=== PATIENT | male | born 1955 | race Caucasian/White ===

== ENCOUNTER 2017-12-22 19:02 | Emergency (ER) | END 2017-12-22 21:31 | disposition home or self-care (01) ==

== ENCOUNTER 2018-01-05 14:52 | Emergency (ER) | END 2018-01-05 17:31 | disposition left against medical advice (07) ==

== ENCOUNTER 2018-04-28 18:11 | Emergency (ER) | payer OTHER ==
[~2018-04-28] VITALS: Ht 167.6 cm; Wt 76.7 kg
[~2018-04-28 18:11] MED LIST: BACI28.34 TOP; BLOOD PRESSURE MEDS
[2018-04-28 18:16] VITALS: BP 101/86; PULSE 66; RESP 20; Ht 167.6 cm; Wt 76.7 kg
[2018-04-28] MEDS ORDERED: DIPHENHYDRAMINE 50 MG INJ IM ONE (18:30)
[2018-04-28] MEDS ORDERED: METHYLPREDNISOLONE 125 MG INJ IM ONE ×2 (18:30→19:00)
[2018-04-28] MEDS ORDERED: PRED20TA PO (19:29)
[2018-04-28] MEDS ORDERED: BEN50 PO (19:29)
--- NOTE | 2018-04-28 19:31 | ERD ---
ER Documentation Chief Complaint Chief Complaint States possible allergic reaction from Motrin HPI 63-year-old male presents with sudden onset of rash swelling the lips after taking ibuprofen for the first time today. Denies shortness of breath, fevers. ROS All systems reviewed and are negative except as per history of present illness. Medications Home Meds Active Scripts Prednisone* (Prednisone*) 20 Mg Tab, 60 MG PO DAILY for 3 Days, TAB Prov:ALBERTO KIRKPATRICK MD 04/28/18 Diphenhydramine Hcl* (Benadryl*) 50 Mg Cap, 50 MG PO Q6 PRN for ALLERGY, #15 CAP Prov:ALBERTO KIRKPATRICK MD 04/28/18 Bacitracin* (Bacitracin Zinc Oint*) 28.35 Gm Oint, 1 APPLIC TOP BID, #1 TUB APPLI TO Prov:NIKKI RECIO PA-C 12/22/17 Reported Medications [Blood Pressure Meds] No Conflict Check 06/16/10 Allergies Allergies: Coded Allergies: No Known Allergies (Verified Allergy, Unknown, 12/22/17) PMhx/Soc Medical and Surgical Hx: pt denies Medical Hx History of Surgery: Yes (NASAL SX/COLONOSCOPY) Anesthesia Reaction: No Hx Neurological Disorder: No Hx Respiratory Disorders: No Hx Cardiac Disorders: No Hx Psychiatric Problems: No Hx Miscellaneous Medical Probl: No Hx Alcohol Use: No Hx Substance Use: No Hx Tobacco Use: No Smoking Status: Never smoker FmHx Family History: No diabetes, No coronary disease, No other Physical Exam Vitals Vital Signs Date Temp Pulse Resp B/P (MAP) Pulse Ox O2 O2 Flow FiO2 Time Delivery Rate 04/28/18 97.9 66 20 101/86 97 18:16 (91) Physical Exam Const: No acute distress Head: Atraumatic Eyes: Normal Conjunctiva ENT: Normal External Ears, Nose and Mouth. Slight swelling of lips. Airway patent. Neck: Full range of motion. No meningismus. Resp: Clear to auscultation bilaterally Cardio: Regular rate and rhythm, no murmurs Abd: Soft, non tender, non distended. Normal bowel sounds Skin: No petechiae or purpura. Scattered wheals urticarial lesions on the back. Back: No midline or flank tenderness Ext: No cyanosis, or edema Neur: Awake and alert Psych: Normal Mood and Affect Results 24 hrs Current Medications Medications Dose Sig/Kenny Start Time Status Last (Trade) Ordered Route PRN Stop Time Admin Dose Reason Admin 50 mg ONCE ONCE 04/28/18 DC 04/28/18 Diphenhydrami IM 18:30 18:46 ne HCl 04/28/18 18:31 (Benadryl) 125 mg ONCE ONCE 04/28/18 DC 04/28/18 Methylprednis IM 18:30 18:48 olone Sodium 04/28/18 18:31 Succinate (Solu-Medrol) 125 mg ONCE ONCE 04/28/18 DC Methylprednis IM 19:00 olone Sodium 04/28/18 19:01 Succinate (Solu-Medrol) Procedures/MDM Patient presents with urticarial rash sudden onset of taking ibuprofen today. He has no signs of anaphylaxis, sepsis, airway obstruction or wheezing. Patient given Solu-Medrol 125 mg IM, Benadryl 50 mg IM. Patient had improved symptoms decreased swelling and rash. Patient shows no evidence of complications of what appears to be allergy to ibuprofen. He will be discharged home with Benadryl, prednisone 60 mg a day for 3 days, primary care follow-up and return precautions. The patient was stable with no new complaints during the ER course. Clinically, there is no current evidence to suggest meningitis, sepsis, acute abdomen, pneumonia, stroke, acute coronary syndrome, pulmonary embolism, aortic dissection or any other emergent condition appearing to require further evaluation or hospitalization. Patient counseled regarding my diagnostic impression and care plan. Prior to discharge all questions answered. Pt agrees with treatment plan and understands strict return precautions. Pt is instructed to follow up with primary care provider within 24-48 hours. Precautionary instructions provided including instructions to return to the ER if not improving or for any worsening or changing symptoms or concerns. Departure Diagnosis: Primary Impression: Allergic reaction Encounter type: initial encounter Qualified Codes: T78.40XA - Allergy, unspecified, initial encounter Condition: Stable Patient Instructions: Allergic Reaction, Drug Additional Instructions: NO VALERIE IBUPROFEN., SOLO TYLENOL PARA DOLOR. Cheque otro vez con ramsay doctor primario en el proximo sanchez or regresa para mas o nueva simptomas. ALBERTO KIRKPATRICK MD Apr 28, 2018 19:31
== END 2018-04-28 19:40 | disposition home or self-care (01) ==
LOC: FTE 18:11
DX: L50.0 Allergic urticaria (principal)
CPT/HCPCS: 96372; J1200; J2930; Z7502